=== PATIENT | male | born 1950 | race Caucasian/White ===

== ENCOUNTER → 2016-04-15 | Outpatient (CLI) | payer OTHER ==
[2016-04-15 16:29] LABS: HEMATOCRIT 52.2 % (42.0-52.0); HEMOGLOBIN 15.7 g/dL (14.0-18.0); MEAN CORPUSCULAR HEMOGLOBIN 22.2 PG (27-31); MEAN CORPUSCULAR HGB CONC 30.1 g/dL (33-37); MEAN PLATELET VOLUME 10.4 FL (7.4-12.2); RDW COEFFICIENT OF VARIATION 21.8 % (11.5-14.5); WHITE BLOOD COUNT 7.38 10^3/uL (4.8-10.8)
[2016-04-15 17:13] LABS: RED BLOOD COUNT 7.06 10^6/uL (4.70-6.10)
== END ==
LOC: LAB 15:44
PROVIDERS: ATTEND Obstetrics & Gynecology Gynecology
DX: D75.1 Secondary polycythemia (principal); Z12.5 Encounter for screening for malignant neoplasm of prostate
CPT/HCPCS: 36415; 85027; G0103

== ENCOUNTER → 2016-04-29 | Outpatient (CLI) | payer OTHER | LOC: LAB 13:51 | PROVIDERS: ATTEND Obstetrics & Gynecology Gynecology | DX: D75.1 Secondary polycythemia (principal); N52.9 Male erectile dysfunction, unspecified | CPT/HCPCS: 36415; 84403; 85018 ==

== ENCOUNTER → 2016-06-24 | Outpatient (CLI) | payer OTHER ==
[2016-06-24 08:08] LABS: HEMATOCRIT 53.1 % (42.0-52.0); HEMOGLOBIN 16.2 g/dL (14.0-18.0); MEAN CORPUSCULAR HEMOGLOBIN 22.7 PG (27-31); MEAN CORPUSCULAR HGB CONC 30.5 g/dL (33-37); MEAN CORPUSCULAR VOLUME 74.5 FL (80-90); MEAN PLATELET VOLUME 9.9 FL (7.4-12.2)
[2016-06-24 08:12] LABS: RED BLOOD COUNT 7.13 10^6/uL (4.70-6.10)
== END ==
LOC: LAB 07:00
PROVIDERS: ATTEND Internal Medicine
DX: D75.1 Secondary polycythemia (principal)
CPT/HCPCS: 36415; 85027

== ENCOUNTER → 2016-06-25 | Outpatient (CLI) | payer OTHER ==
[2016-06-25 18:00] LABS: BLOOD UREA NITROGEN 37 mg/dL (7-22); BUN/CREATININE RATIO 30.83 (6-20); CALCIUM 9.5 mg/dL (8.7-10.7); EST GLOMERULAR FILTRATION > 60 (>60 ml/min/1.73m(2)); SERUM ALBUMIN 4.3 g/dL (3.5-4.8); URIC ACID 10.8 mg/dl (3.8-8.5)
== END ==
LOC: MOB LAB 15:57
PROVIDERS: ATTEND Nurse Practitioner
DX: I10 Essential (primary) hypertension (principal); M25.571 Pain in right ankle and joints of right foot; E79.0 Hyperuricemia without signs of inflammatory arthritis and tophaceous disease; D75.1 Secondary polycythemia
CPT/HCPCS: 36415; 80053; 83701; 84550; 99214; G0463

== ENCOUNTER → 2016-07-20 | Outpatient (CLI) | payer OTHER ==
[2016-07-20 15:11] LABS: HEMATOCRIT 55.3 % (42.0-52.0); HEMOGLOBIN 16.5 g/dL (14.0-18.0); MEAN CORPUSCULAR HGB CONC 29.8 g/dL (33-37); MEAN PLATELET VOLUME 9.3 FL (7.4-12.2); RED BLOOD COUNT 7.18 10^6/uL (4.70-6.10)
== END ==
LOC: LAB 14:48
PROVIDERS: ATTEND Internal Medicine
DX: D75.1 Secondary polycythemia (principal)
CPT/HCPCS: 85027; 99195

== ENCOUNTER → 2016-10-19 | Outpatient (CLI) | payer OTHER ==
[2016-10-19 09:48] LABS: HEMATOCRIT 55.9 % (42.0-52.0); HEMOGLOBIN 18.2 g/dL (14.0-18.0)
== END ==
LOC: LAB 09:28
PROVIDERS: ATTEND Internal Medicine
DX: D75.1 Secondary polycythemia (principal)
CPT/HCPCS: 85014; 85018; 99195

== ENCOUNTER → 2016-10-21 | Outpatient (CLI) | payer OTHER ==
--- NOTE | 2016-10-21 15:02 | EKG ---
[address] [id number] Measurements Intervals [place] Rate: 76 P: 78 PA: 165 QRS: -28 QRSD: 102 T: 28 QT: 376 QTc: 407 Interpretive Statements SINUS RHYTHM LEFT AXIS DEVIATION [QRS AXIS < -20] Compared to ECG 09/21/2014 11:19:23 No significant changes Electronically Signed On 10-21-16 15:30:22 MDT by Nicolas Lopez [email or web address]
[2016-10-21 17:20] LABS: HEMATOCRIT 52.9 % (42.0-52.0); HEMOGLOBIN 16.6 g/dL (14.0-18.0); MEAN CORPUSCULAR HEMOGLOBIN 26.3 PG (27-31); MEAN CORPUSCULAR HGB CONC 31.4 g/dL (33-37); MEAN CORPUSCULAR VOLUME 83.8 FL (80-90); MEAN PLATELET VOLUME 10.4 FL (7.4-12.2); RED BLOOD COUNT 6.31 10^6/uL (4.70-6.10)
[2016-10-21 17:24] LABS: CALCIUM 9.4 mg/dL (8.7-10.7); URIC ACID 7.4 mg/dl (3.8-8.5)
== END ==
LOC: MOB EKG 14:41
PROVIDERS: ATTEND Nurse Practitioner
DX: H26.9 Unspecified cataract (principal); E79.0 Hyperuricemia without signs of inflammatory arthritis and tophaceous disease; I10 Essential (primary) hypertension
CPT/HCPCS: 36415; 80048; 84550; 85027; 93005; 93010

== ENCOUNTER → 2016-10-26 | Outpatient (CLI) | payer OTHER ==
[2016-10-26 13:59] LABS: BLOOD UREA NITROGEN 38 mg/dL (7-22); BUN/CREATININE RATIO 31.66 (6-20); CALCIUM 9.3 mg/dL (8.7-10.7); EST GLOMERULAR FILTRATION > 60 (>60 ml/min/1.73m(2))
== END ==
LOC: LAB 13:34
PROVIDERS: ATTEND Nurse Practitioner
DX: E87.5 Hyperkalemia (principal)
CPT/HCPCS: 36415; 80048